=== PATIENT | female | born 1965 | race Caucasian/White ===

== ENCOUNTER 2019-07-04 10:38 | Emergency (ER) | payer OTHER ==
[2019-07-04 10:41] VITALS: BMI 34.7
[2019-07-04] MEDS ORDERED: ACETAMINOPHEN 1000 MG/100 ML VIAL (NON FORMULARY) IVPB ONE (11:08)
[2019-07-04] MEDS ORDERED: LACTATED RINGERS SOLUTION 1,000 ML IV STA (11:08)
[2019-07-04] MEDS ORDERED: morphine CARPU-JECT 4 MG/1 ML DISP.SYRIN IVPUSH ONE (11:32)
--- NOTE | 2019-07-04 11:32 | PDOC ---
History of Present Illness - General Chief Complaint: Pain, Acute Stated Complaint: ABD PAIN Time Seen by Provider: 07/04/19 11:21 History Source: Patient Exam Limitations: No Limitations - History of Present Illness Initial Comments: 07/04/19 11:32 HPI 54 YOF with no sig medical history presenting with acute urinary retention and diffuse AP since this morning at 7AM, after drinking cilantro seed tea. has been unable to urinate. no prior symptoms similarly. a/w nausea and NBNB emesis. no trauma. no infectious sx. no recent procedures. Denies fever, chills, chest pain, SOB, palpitation, dizziness, weakness, D, focal weakness/paresthesias, leg swelling/pain, rash. No sick contacts or travel. No new changes in medications. No suspicious food intake Review of systems Constitutional: no fevers or chills. No weakness HEENT: no headache or dizziness. No congestion. No visual/hearing disturbances. CVS: no cp or syncope. Resp: no sob. No cough. Gastrointestinal: +abdominal pain, nausea, vomiting, No constipation or diarrhea. Genitourinary: no hematuria, frequency or urgency, no dysuria. +urinary retention MUSCULOSKELETAL: No joint pain and swelling. No neck or back pain. SKIN: no redness or skin changes, no discharge, no rash. No wounds. Hematologic: no easy bruising/bleeding. NEUROLOGIC: No headache, dizziness, LOC or altered mental status. No weakness, numbness or tingling. Psych: no anxiety or depression Allergic/Immunologic: no allergies All other systems reviewed and negative, or as documented in HPI. Physical exam General: mild distress/colicky 2/2 pain HEENT: NCAT, PERRL, EOMI, clear conjunctiva, anicteric, moist mucus membranes, clear oropharynx, no oral lesions.. Neck: neck supple, FROM Resp: CTAB, normal and even respirations, no respiratory distress CVS: RRR, no murmurs, 2+ peripheral pulses throughout, no peripheral edema Abdomen: soft, diffuse abdominal tenderness. +right CVAT. no rebound or guarding. Back: nontender, normal inspection and ROM MSK: no edema, KWOK x4, ROM intact. No clubbing or cyanosis. normal bulk and tone. Extremities: no calf tenderness Neuro: alert, oriented appropriately; no focal neurologic deficits Psych: Calm and cooperative Skin: warm and well perfused, cap refill <2 sec, normal color, no rash or skin discoloration. 07/04/19 11:33 07/04/19 17:21 Past History - Past Medical History Allergies/Adverse Reactions: Allergies Allergy/AdvReac Type Severity Reaction Status Date / Time No Known Allergies Allergy Verified 07/04/19 10:41 Home Medications: Ambulatory Orders Permethrin 5% Topical Cream [Elimite -] 1 applic TP ONCE #1 tube MDD 1 05/21/17 Ibuprofen 600 mg PO QID PRN #20 tablet 07/04/19 Ondansetron HCl [Zofran] 4 mg PO TID PRN #9 tablet 07/04/19 Oxycodone HCl 10 mg PO QID PRN #12 tablet MDD 4 07/04/19 COPD: No - Psycho Social/Smoking Cessation Hx Smoking History: Never smoked *Physical Exam - Vital Signs Last Vital Signs Temp Pulse Resp BP Pulse Ox 97.9 F 67 16 198/77 H 97 07/04/19 10:39 07/04/19 10:39 07/04/19 10:39 07/04/19 10:39 07/04/19 10:39 ED Treatment Course - LABORATORY CBC & Chemistry Diagram: 07/04/19 11:30 07/04/19 11:30 Medical Decision Making - Medical Decision Making 07/04/19 12:49 Vital Signs Temp Pulse Resp BP Pulse Ox 97.9 F 68 18 165/64 98 07/04/19 10:39 07/04/19 12:35 07/04/19 12:35 07/04/19 12:35 07/04/19 12:35 DDx abdominal pain: Renal colic, biliary colic, metabolic/electrolyte derangements. GERD, PUD, esophageal spasm, pancreatitis, hepatitis, constipation , colitis, gastroenteritis, cholecystitis, UTI, pyelonephritis, ileus, SBO, medication side effect, hernia, appendicitis, diverticulitis, msk strain, mesenteric adenitis, psoas abscess. Laboratory results are within normal limits, negative test, mildly hemoconcentrated, no WBC count. Urinalysis neg for infection. +blood from passing of ureteral stone. Bedside [id number] ultrasound with right-sided hydronephrosis, no urinary retention, bladder volume only 50 mL, CT spiral to evaluate for source of colicky pain/hydronephrosis (most likely stone passage) given first time presentation and rule out alternative etiologies. Patient given analgesia, morphine/Tylenol, toradol, IV fluid hydration reassess 07/04/19 14:15 Clinically the patient presents with symptomatic ureterolithiasis (kidney stones ). IV pain medications, antiemetics, and IV fluids were given. A CT Abdomen/ Pelvis was obtained for concern for a possible obstructing kidney stone and to rule out other pathologic conditions. The CT confirmed revealed a stone at 4mm right UVJ stone. The patient's labs were unremarkable, no renal insufficiency. With pain medication the patient improved significantly and comfortable.. The patient is referred to the on-call urologist for follow up and is discharged with oral narcotics for pain control, antiemetics, and given the following return precautions: Fever > 100.5, pain not controlled with narcotics, worsening pain, dehydration, vomiting or any other concerns and to strain the urine. NSAIDS/tylenol for mild to moderate pain, rx oxycodone PRN for more severe pain. zofran for nausea, adequate hydration and oral fluids and air conditioning in hot weather. literature/evidence low for flomax benefit, so defer. urine strainer to catch urine. information provided in Turkmen. 07/04/19 16:54 07/04/19 17:22 07/04/19 17:22 Discharge - Discharge Information Problems reviewed: Yes Clinical Impression/Diagnosis: Ureteral stone with hydronephrosis Condition: Improved Disposition: HOME - Admission No - Additional Discharge Information Prescriptions: Ibuprofen 600 mg PO QID PRN #20 tablet PRN Reason: Mild Pain Ondansetron HCl [Zofran] 4 mg PO TID PRN #9 tablet PRN Reason: nausea/vomiting Oxycodone HCl 10 mg PO QID PRN #12 tablet MDD 4 PRN Reason: Severe Pain - Follow up/Referral Referrals: [facility] [Provider Group] Damien West MD [Staff Physician] - Franklyn Campo MD [Staff Physician] - - Patient Discharge Instructions Patient Printed Discharge Instructions: DI for Kidney Stones Additional Instructions: Your CT results were significant for obstructed stones and swelling of collecting system, Drink plenty of water/fluids, avoid caffeine or alcohol Strain all urine for the next 1-2 days and save any stone for analysis Ibuprofen/naproxen/acetaminophen as needed for mvmw-up-nlmlfuef pain. Use Motrin (also called Ibuprofen or Advil) 400 mg every 6 hours as needed for pain. If you have any stomach discomfort while taking Motrin, you can use TUMS to help. Oxycodone every 6 hours as needed for severe pain; Please do not drive or operate heavy machinery while on this medication because it can impair your judgement. This is a very addictive medication, do not take it unless you absolutely have to. Return to ER if you experience persistent pain/vomiting/fever/dehydration, difficulty urinating or inability to tolerate oral intake. Follow-up with your primary doctor within the next 2-3 days. Urologist follow up this week, referrals given as well. (we will give you a list of urologists, but make sure they accept your insurance). Please bring your labs and imaging with you to your appointment. ------- Los resultados de ponce TC fueron significativos para clculos obstruidos e hinchazn del sistema colector, Priscila rob agua / lquidos, evite la cafena o el alcohol. Colar toda la orina rashid los prximos 1-2 greco y guardar cualquier clculo para ponce anlisis. Ibuprofeno / naproxeno / acetaminofeno segn sea necesario para el dolor leve a moderado. Use Motrin (tambin llamado Ibuprofeno o Advil) 400 mg cada 6 horas segn sea necesario para el dolor. Si tiene alguna molestia estomacal mientras el Motrin, puede usar TUMS para ayudar. Oxicodona cada 6 horas segn sea necesario para el dolor intenso; No conduzca ni maneje maquinaria pesada mientras est tomando brianne medicamento porque puede afectar ponce criterio. Brianne es un medicamento muy adictivo, no lo tome a menos que sea absolutamente necesario. Regrese a la saman de emergencias si experimenta dolor / vmitos / fiebre / deshidratacin persistentes, dificultad para orinar o incapacidad para tolerar la ingesta oral. Aston un seguimiento con ponce mdico de atencin primaria dentro de los prximos 2- 3 greco. Seguimiento del urlogo esta semana, tambin se hina referencias. (le daremos martin lista de urlogos, shivani nos aseguraremos de que acepten ponce seguro). Por favor traiga cara laboratorios e imgenes a ponce emerson. Print Language: SETSWANA - Post Discharge Activity Work/Back to School Note: Back to Work
[2019-07-04] MEDS ORDERED: ACETAMINOPHEN INJECTION 100 ML IVPB ONE (11:37)
[2019-07-04] MEDS ORDERED: MORPHINE SULFATE 2 MG/ML VIAL ONE (11:37)
[2019-07-04 11:47] LABS: BASO % 0.8 % (0-2.0); EOS % 0.2 % (0-4.5); HEMATOCRIT 45.6 % (32.4-45.2); HEMOGLOBIN 15.7 GM/dL (10.7-15.3); MCH 30.2 pg (25.7-33.7); MCHC 34.5 g/dl (32.0-36.0); MEAN CELL VOLUME 87.4 fl (80-96); MEAN PLT VOLUME 9.4 fl (7.5-11.1); MONO % 3.3 % (3.8-10.2); NEUT % 82.7 % (42.8-82.8); PLATELET COUNT 215 K/MM3 (134-434); RBC 5.21 M/mm3 (3.60-5.2); RDW 12.8 % (11.6-15.6); WHITE BLOOD COUNT 9.7 K/mm3 (4.0-10.0)
[2019-07-04 12:42] LABS: ALBUMIN 4.2 g/dl (3.4-5.0); BILIRUBIN,TOTAL 0.6 mg/dL (0.2-1); CALCIUM 9.4 mg/dL (8.5-10.1); CREATININE 0.7 mg/dL (0.55-1.3); POTASSIUM 4.2 mmol/L (3.5-5.1); TOT PROT 7.5 g/dl (6.4-8.2)
[2019-07-04] MEDS ORDERED: SODIUM CHLORIDE 0.9% 500 ML INFUS.BAG IV ONE (14:19)
[2019-07-04] MEDS ORDERED: KETOROLAC TROMETHAMINE 15 MG/ML VIAL IVPUSH ONE (14:19)
[2019-07-04] MEDS ORDERED: KETOROLAC TROMETHAMINE 15 MG/ML VIAL ONE (14:20)
[2019-07-04 17:05] LABS: EPI CELLS 2.1 /HPF (0-5/HPF); HYALINE CASTS 6 /lpf (0-8); PH,URINE 6.5 (5.0-8.0); URINE APPEARANCE CLEAR; URINE BACTERIA 9.5 /hpf (NEGATIVE); URINE BILIRUBIN NEGATIVE (NEGATIVE); URINE COLOR YELLOW; URINE GLUCOSE (UA) NEGATIVE (NEGATIVE); URINE KETONE TRACE (NEGATIVE); URINE LEUK ESTERASE NEGATIVE (NEGATIVE); URINE NITRITE NEGATIVE (NEGATIVE); URINE PROTEIN 1+ (NEGATIVE); URINE RBC 107 /hpf (0-4); URINE UROBILINOGEN 0.2 mg/dL (0.2-1.0); URINE WBC 3 /hpf (0-5)
[2019-07-04 17:56] VITALS: BP 120/66; PULSE 76
[2019-07-04 17:59] VITALS: TEMP 98.3
== END 2019-07-04 17:58 | disposition home or self-care (01) ==
LOC: JER 10:38
PROC: 3E033NZ Introduction of Analgesics, Hypnotics, Sedatives into Peripheral Vein, Percutaneous Approach (ICD-10-PCS; principal; 2019-07-04)
PROC: 3E033NZ Introduction of Analgesics, Hypnotics, Sedatives into Peripheral Vein, Percutaneous Approach (ICD-10-PCS; 2019-07-04)
PROC: 3E0333Z Introduction of Anti-inflammatory into Peripheral Vein, Percutaneous Approach (ICD-10-PCS; 2019-07-04)
PROC: BT4JZZZ Ultrasonography of Kidneys and Bladder (ICD-10-PCS; 2019-07-04)
DX: N13.2 Hydronephrosis with renal and ureteral calculous obstruction (principal)
CPT/HCPCS: 36415; 74176-TC; 80053; 81003; 83690; 84703; 85025; 87086; 99284-25; J0131